=== PATIENT | male | born 1965 | race Caucasian/White ===

== ENCOUNTER 2020-08-05 19:42 | Emergency (ER) | payer OTHER ==
[~2020-08-05] VITALS: Ht 185.4 cm; Wt 181.0 kg
[2020-08-05 21:00] VITALS: BP 152/67
[2020-08-05] MEDS ORDERED: HYDROcodone/APAP 7.5/325MG 1 TAB TABLET PO ONE (21:30)
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
--- NOTE | 2020-08-05 21:44 | RAD ---
Exam: Left rib INDICATION: Left shoulder pain after fall TECHNIQUE: Frontal and oblique views of the left rib Comparisons: None FINDINGS: No displaced rib fractures. Visualized soft tissues are unremarkable. IMPRESSION: No displaced rib fractures. Electronically signed by: Erendira Bass MD (08/05/2020 9:42 PM) NELDA
[2020-08-05] MEDS ORDERED: NAPR-514 PO (22:00)
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
[2020-08-05] MEDS ORDERED: NAPROXEN 500 MG TABLET PO ONE (22:30)
== END 2020-08-05 22:30 | disposition home or self-care (01) ==
LOC: ER 19:42
DX: S20.212A Contusion of left front wall of thorax, initial encounter (principal); M25.512 Pain in left shoulder; R20.2 Paresthesia of skin; I10 Essential (primary) hypertension; E66.9 Obesity, unspecified; Z90.89 Acquired absence of other organs; Z90.49 Acquired absence of other specified parts of digestive tract; Z98.890 Other specified postprocedural states; Z68.43 Body mass index [BMI] 50.0-59.9, adult; V98.8XXA Other specified transport accidents, initial encounter; Y93.89 Activity, other specified; Y92.413 State road as the place of occurrence of the external cause; Y99.8 Other external cause status
CPT/HCPCS: 71101; 73030; 99284; A4565